=== PATIENT | female | born 1960 | race Two or more races ===

== ENCOUNTER 2019-01-29 22:21 | Emergency (ER) | payer OTHER ==
[~2019-01-29] VITALS: Ht 162.6 cm; Wt 86.2 kg
[~2019-01-29 22:21] MED LIST: ESCI20TA PO
[2019-01-29 22:24] VITALS: BP 133/72
[2019-01-30] MEDS ORDERED: IBUPROFEN 400 MG TABLET PO ONE
--- NOTE | 2019-01-30 00:17 | NUR ---
RADIOLOGY AT BEDSIDE FOR XRAY
[2019-01-30] MEDS ORDERED: IBUPROFEN 400 MG TABLET ONE (00:18)
== END 2019-01-30 01:59 | disposition home or self-care (01) ==
LOC: ER 22:25
DX: S73.191A Other sprain of right hip, initial encounter (principal); S83.8X1A Sprain of other specified parts of right knee, initial encounter; S43.491A Other sprain of right shoulder joint, initial encounter; Z98.890 Other specified postprocedural states; Z87.440 Personal history of urinary (tract) infections; Z79.899 Other long term (current) drug therapy; V49.49XA Driver injured in collision with other motor vehicles in traffic accident, initial encounter; Y93.89 Activity, other specified; Y92.413 State road as the place of occurrence of the external cause; Y99.8 Other external cause status
CPT/HCPCS: 73030-TC; 73501; 73564-TC